=== PATIENT | female | born 1975 | race Caucasian/White ===

== ENCOUNTER 2019-10-30 09:58 | Emergency (ER) | payer MEDICAID, SELFPAY ==
--- NOTE | 2019-10-30 10:04 | ED.SKABFB ---
HPI - Skin/Abscess/Foreign Bdy General Chief complaint: Skin/Abscess/Foreign Body Stated complaint: SCALP ITCHING/WOUNDS Time Seen by Provider: 10/30/19 10:04 Source: patient Mode of arrival: ambulatory Limitations: no limitations History of Present Illness HPI narrative: Patient is a 44-year-old female with a history of skin infection who presents for evaluation of abscess over her scalp. Patient reports a draining type lesion on the top of her scalp which appeared approximately 2 days ago. Patient reports some swollen lymph nodes in her neck, reports her neck feels slightly sore. She denies any fever, chills, denies neck rigidity. Patient states she has a history of skin infection, abscess on her neck that required abscess and drainage about a year ago as well as oral antibiotics. Patient denies any history of diabetes, drug use. No new soaps, lotions or detergents. Patient is concerned maybe she was bit by something. Patient denies any vision changes, no facial edema. Patient states she feels as if her forehead is swollen, but then it does not appear swollen when she looks at her face. No other lesions or rashes. Related Data Allergies Allergy/AdvReac Type Severity Reaction Status Date / Time meperidine Allergy Severe Anaphylactic Verified 01/30/19 23:28 Shock morphine Allergy Intermediate Other Verified 01/30/19 23:28 Review of Systems Review of Systems: Narrative: CONSTITUTIONAL: Denies fever CARDIOVASCULAR: Denies chest pain RESPIRATORY: Denies cough or dyspnea. GASTROINTESTINAL: Denies abdominal pain SKIN: Denies rash MUSCULOSKELETAL: Denies back pain NEUROLOGIC: Denies headache PMFSH Past Medical History Medical History (Updated 10/30/19 @ 10:46 by Dee Bull MD) Abscess Cellulitis Surgical History Surgical History (Updated 10/30/19 @ 10:42 by Dee Bull MD) H/O tubal ligation Social History Social History (Updated 10/30/19 @ 10:43 by Dee Bull MD) Smoking status: Never smoker Alcohol intake: never Substance use: never Gender identity (if verbalized by the patient): Female Exam Narrative: Exam Narrative: GENERAL: Awake, alert, conversant HEAD: Normocephalic, atraumatic. 0.5 cm abscess, purulent head overlying the abscess on the top of the scalp. Non-boggy, mildly tender to palpation. Vesicular type area and lesion in a linear distribution on the right side of the scalp and hairline. No lesions over the eye. No facial edema, erythema. No facial warmth. EYES: PERRLA and EOMI. ENT: Nares clear, no rhinorrhea or epistaxis. Mucous membranes moist. NECK: Supple. Bilateral anterior lymphadenopathy. No neck rigidity. No meningismus. CHEST: No respiratory distress, breathing even and non labored HEART: Regular rate, sinus rhythm ABDOMEN:Non distended, non tender EXTREMITIES: Normal range of motion. No edema. SKIN: Warm, dry, no rash. NEURO:No focal deficits. Alert and oriented x3 Course Vital Signs Vital signs: Vital Signs Temperature 36.8 C 10/30/19 10:10 Pulse Rate 76 10/30/19 10:10 Respiratory Rate 14 10/30/19 10:10 Blood Pressure 133/93 H 10/30/19 10:10 Pulse Oximetry 99 10/30/19 10:10 Temperature 36.8 C 10/30/19 10:10 Pulse Rate 76 10/30/19 10:10 Respiratory Rate 14 10/30/19 10:10 Blood Pressure 133/93 H 10/30/19 10:10 Pulse Oximetry 99 10/30/19 10:10 Procedures Abscess I/D scalp: Date of Incision: 10/30/19 Time of Incision: 10:40 Side (if applicable): left Sedation/analgesia: none Local Anesthetic: lidocaine 1% Amount of anesthesia used (mL): 3 Technique: incised with #11 blade Amount of fluid expressed (mL): 1 Irrigation: Yes Packing used?: none I&D Results: Pus MDM - Skin/Abscess/Foreign Bdy MDM Narrative Medical decision making narrative: Patient presents with abscess to scalp, and then some herpetic, vesicular type lesions adjacent
[2019-10-30 10:10] VITALS: BP 133/93; PULSE 76; RESP 14; TEMP 36.8; O2SAT 99
[2019-10-30] MEDS: KETOROLAC 30 MG/ML VIAL (*BKC) IM (11:04)
== END 2019-10-30 11:11 | disposition home or self-care (01) ==
PROVIDERS: Emergency Provider Emergency Medicine
DX: L02.811 Cutaneous abscess of head [any part, except face] (principal)
CPT/HCPCS: 10060; 96372; 99283; J1885